=== PATIENT | female | born 1990 | race African-American/Black ===

== ENCOUNTER 2020-10-02 12:25 | Emergency (ER) | payer MEDICAID ==
[~2020-10-02] VITALS: Ht 160 cm; Wt 79.0 kg
[2020-10-02 12:33] VITALS: BP 132/76
[2020-10-02] MEDS ORDERED: IBUP-2029 MT (14:14)
== END 2020-10-02 14:33 | disposition home or self-care (01) ==
LOC: ER 12:25
DX: R50.9 Fever, unspecified (principal); M79.18 Myalgia, other site; Z20.822 Contact with and (suspected) exposure to COVID-19; J02.9 Acute pharyngitis, unspecified
CPT/HCPCS: 99282